=== PATIENT | male | born 1985 | race Asian ===

== ENCOUNTER 2023-02-17 08:58 | Emergency (ER) | payer MEDICAID ==
[~2023-02-17] VITALS: Ht 170.2 cm; Wt 74.8 kg
[2023-02-17 09:03] VITALS: BP_SYST 128; PULSE 67; RESP 18; TEMP 98.3; O2SAT 99
[2023-02-17 10:03] VITALS: BP_SYST 128; PULSE 67; RESP 18; TEMP 98.3; O2SAT 99
== END 2023-02-17 10:04 | disposition home or self-care (01) ==
LOC: SED 08:58
DX: S52.611A Displaced fracture of right ulna styloid process, initial encounter for closed fracture (principal); Z79.899 Other long term (current) drug therapy; V00.311A Fall from snowboard, initial encounter; Y93.23 Activity, snow (alpine) (downhill) skiing, snowboarding, sledding, tobogganing and snow tubing; Y92.89 Other specified places as the place of occurrence of the external cause; Y99.8 Other external cause status
CPT/HCPCS: 99283

== ENCOUNTER 2023-08-10 22:48 | Emergency (ER) | payer BC, MEDICAID ==
[~2023-08-10] VITALS: Ht 172.7 cm; Wt 75.7 kg
[2023-08-10 22:54] VITALS: BP_SYST 118; PULSE 66; RESP 18; TEMP 96.9; O2SAT 99
[2023-08-10] MEDS ORDERED: BACITRACIN 1 GM OINT TP ONE (23:57)
[2023-08-10] MEDS: DIPHTH,PERTUSS(ACELL),TET VAC 0.5 ML VIAL (Tdap) I.M. ONE (23:57)
[2023-08-11] MEDS: LIDOCAINE 1% 10 MG/ML, 20 ML MDV INJ ONE (00:07)
[2023-08-11 00:31] VITALS: BP_SYST 118; PULSE 66; RESP 18; TEMP 96.9; O2SAT 99
== END 2023-08-11 00:31 | disposition home or self-care (01) ==
LOC: SED 22:48
DX: S61.215A Laceration without foreign body of left ring finger without damage to nail, initial encounter (principal); Z23 Encounter for immunization; W45.8XXA Other foreign body or object entering through skin, initial encounter; Y93.89 Activity, other specified; Y92.89 Other specified places as the place of occurrence of the external cause; Y99.8 Other external cause status
CPT/HCPCS: 90715; 99283